=== PATIENT | female | born 1980 | race Hispanic/Latino ===

== ENCOUNTER 2017-10-07 18:20 | Emergency (ER) | payer SELFPAY ==
[~2017-10-07 18:20] MED LIST: CIPR-245 PO; LEVO1TAB79 PO; TAMS-1 PO; TYL3 PO
== END 2017-10-07 18:48 | disposition home or self-care (01) ==
LOC: EDH 18:20
DX: J02.9 Acute pharyngitis, unspecified (principal)
CPT/HCPCS: 99281

== ENCOUNTER 2022-11-24 18:36 | Emergency (ER) | payer OTHER ==
[~2022-11-24] VITALS: Ht 157.5 cm; Wt 108.9 kg
[~2022-11-24 18:36] MED LIST changes: -CIPR-245 PO; +CIPR500T10 PO
[2022-11-24 20:02] VITALS: BP 136/60
[2022-11-24] MEDS ORDERED: MECLIZINE HCL 25 MG TABLET PO ONE (20:30)
[2022-11-24] MEDS ORDERED: DEXAMETHASONE SOD PHOSPHATE 4 MG/ML 1ML VIAL IM ONE (20:30)
[2022-11-24] MEDS ORDERED: FLUT16H NASAL (20:46)
[2022-11-24] MEDS ORDERED: AMOX-426 PO (20:46)
[2022-11-24] MEDS ORDERED: PSEU120T62 PO (20:46)
[2022-11-24] MEDS ORDERED: MECL-160 PO (20:46)
[2022-11-24] MEDS ORDERED: ONDA-104 PO (20:46)
== END 2022-11-24 21:02 | disposition home or self-care (01) ==
LOC: EDH 18:36
DX: J32.9 Chronic sinusitis, unspecified (principal); J06.9 Acute upper respiratory infection, unspecified; R42 Dizziness and giddiness; Z79.899 Other long term (current) drug therapy
CPT/HCPCS: 99283; 96372; J1100

== ENCOUNTER 2023-04-05 14:43 | Emergency (ER) | payer BC, OTHER ==
[~2023-04-05] VITALS: Ht 160 cm; Wt 108.9 kg
[~2023-04-05 14:43] MED LIST changes: +AMOX-426 PO; +FLUT16H NASAL; +MECL-302 PO; +ONDA-104 PO; +PSEU120T62 PO
[2023-04-05 14:45] VITALS: BP 178/104; PULSE 70; RESP 18
[2023-04-05 16:04] LABS: BASOPHILS # (AUTO) 0.05 K/uL (0.00-0.20); BASOPHILS % (AUTO) 0.5 % (0.0-5.0); EOSINOPHILS # (AUTO) 0.21 K/uL (0.00-0.70); EOSINOPHILS % (AUTO) 1.9 % (0.0-8.0); HEMATOCRIT 40.4 % (36-48); IMMATURE GRANULOCYTE ABSOLUTE 0.09 K/uL (0-1); LYMPHOCYTES # (AUTO) 3.4 K/uL (1.0-4.8); LYMPHOCYTES % (AUTO) 31.2 % (21.0-51.0); MEAN CORPUSCULAR HEMOGLOBIN 29.1 pg (27.0-33.0); MEAN CORPUSCULAR HGB CONC 33.9 g/dL (32.0-36.0); MONOCYTES # (AUTO) 0.6 K/uL (0.1-1.0); MONOCYTES % (AUTO) 5.8 % (3.0-13.0); NEUTROPHILS # (AUTO) 6.5 K/uL (1.8-7.7); NEUTROPHILS % (AUTO) 59.8 % (40.0-77.0); PLATELET COUNT (AUTO) 418 K/uL (130-400); RED CELL DISTRIBUTION WIDTH 12.4 % (11.0-15.5); WHITE BLOOD COUNT (AUTO) 10.9 K/uL (4.8-10.8)
[2023-04-05 16:05] LABS: APPEARANCE,URINE CLEAR (CLEAR); BILIRUBIN,URINE NEGATIVE (NEGATIVE); COLOR,URINE LIGHT-YELLOW (YELLOW); GLUCOSE, URINE (UA) NEGATIVE (NEGATIVE); KETONES,URINE NEGATIVE (NEGATIVE); LEUKOCYTE ESTERASE ,URINE NEGATIVE Leu/uL (NEGATIVE); NITRATE,URINE NEGATIVE (NEGATIVE); OCCULT BLOOD,URINE MODERATE (NEGATIVE); PROTEIN,URINE NEGATIVE (NEGATIVE); UROBILINOGEN,URINE 0.2 mg/dL (0.2-1.0)
[2023-04-05 16:06] LABS: ADD UA MICROSCOPIC YES
[2023-04-05 16:14] LABS: CREATININE 0.7 mg/dL (0.5-1.5); POTASSIUM 3.4 mmol/L (3.5-5.1)
[2023-04-05 16:16] LABS: BACTERIA,URINE RARE /HPF (None Seen); SQUAMOUS EPITHELIAL CELL,UR RARE /HPF (0-2); WBC,URINE 0-1 /HPF (0-1)
[2023-04-05 16:18] LABS: ALBUMIN 3.7 g/dL (3.5-5.0); BILIRUBIN,TOTAL 0.5 mg/dL (0.2-1.0); TOTAL PROTEIN, SERUM 7.9 g/dL (6.0-8.3)
[2023-04-05 16:20] LABS: HCG,QUALITATIVE URINE NEGATIVE (NEGATIVE)
[2023-04-05] MEDS ORDERED: KETOROLAC 60 MG VIAL (30MG/ML) IM ONE (17:00)
[2023-04-05] MEDS ORDERED: PHEN-847 PO (17:56)
[2023-04-05] MEDS ORDERED: HYDROCODONE/ACETAMINOPHEN 5/325 MG TAB PO ONE (18:00)
== END 2023-04-05 18:17 | disposition home or self-care (01) ==
LOC: EDH 14:43
DX: N39.0 Urinary tract infection, site not specified (principal); Z79.3 Long term (current) use of hormonal contraceptives; Z88.1 Allergy status to other antibiotic agents; Z88.2 Allergy status to sulfonamides; Z91.51 Personal history of suicidal behavior
CPT/HCPCS: 99284; 74176; 80053; 85025; 81001; 81025; 36415; 96372; J1885

== ENCOUNTER 2024-02-22 12:42 | Emergency (ER) | payer BC ==
[~2024-02-22] VITALS: Ht 157.5 cm; Wt 90.7 kg
[~2024-02-22 12:42] MED LIST changes: +PHEN-847 PO
[2024-02-22 13:38] LABS: BASOPHILS # (AUTO) 0.02 K/uL (0.00-0.20); BASOPHILS % (AUTO) 0.2 % (0.0-5.0); EOSINOPHILS % (AUTO) 2.2 % (0.0-8.0); HEMATOCRIT 42.2 % (36-48); IMMATURE GRANULOCYTE ABSOLUTE 0.03 K/uL (0-1); LYMPHOCYTES # (AUTO) 2.9 K/uL (1.0-4.8); MEAN CORPUSCULAR HEMOGLOBIN 28.9 pg (27.0-33.0); MEAN CORPUSCULAR HGB CONC 33.4 g/dL (32.0-36.0); MEAN CORPUSCULAR VOLUME 86.5 fL (79-99); MONOCYTES # (AUTO) 0.4 K/uL (0.1-1.0); MONOCYTES % (AUTO) 4.6 % (3.0-13.0); NEUTROPHILS # (AUTO) 5.4 K/uL (1.8-7.7); NEUTROPHILS % (AUTO) 60.7 % (40.0-77.0); PLATELET COUNT (AUTO) 304 K/uL (130-400); RED BLOOD CELL COUNT(AUTO) 4.88 MIL/uL (4.00-5.50); RED CELL DISTRIBUTION WIDTH 12.7 % (11.0-15.5); WHITE BLOOD COUNT (AUTO) 8.9 K/uL (4.8-10.8)
[2024-02-22 13:49] LABS: APPEARANCE,URINE CLEAR (CLEAR); BILIRUBIN,URINE NEGATIVE (NEGATIVE); COLOR,URINE LIGHT-YELLOW (YELLOW); GLUCOSE, URINE (UA) NEGATIVE (NEGATIVE); KETONES,URINE NEGATIVE (NEGATIVE); LEUKOCYTE ESTERASE ,URINE NEGATIVE Leu/uL (NEGATIVE); NITRATE,URINE NEGATIVE (NEGATIVE); OCCULT BLOOD,URINE MODERATE (NEGATIVE); PROTEIN,URINE NEGATIVE (NEGATIVE); UROBILINOGEN,URINE 0.2 mg/dL (0.2-1.0)
[2024-02-22 13:53] LABS: HCG,QUALITATIVE URINE NEGATIVE (NEGATIVE)
[2024-02-22 13:55] LABS: CREATININE 0.6 mg/dL (0.5-1.0); POTASSIUM 3.8 mmol/L (3.5-5.1)
[2024-02-22 13:55] LABS: ADD UA MICROSCOPIC YES
[2024-02-22 13:57] LABS: BACTERIA,URINE RARE /HPF (None Seen); MUCUS,URINE RARE LPF (None Seen); SQUAMOUS EPITHELIAL CELL,UR RARE /HPF (0-2); WBC,URINE 0-1 /HPF (0-1)
[2024-02-22] MEDS: 0.9%NACL 1000ML 1,000 ML IV ONE (13:58)
[2024-02-22] MEDS: KETOROLAC 30MG VIAL (30MG/ML) IVP ONE (13:59)
[2024-02-22] MEDS ORDERED: NAPR-1192 PO (16:29)
[2024-02-22 16:49] VITALS: BP 115/68; PULSE 80; RESP 18; O2SAT 99
== END 2024-02-22 16:59 | disposition home or self-care (01) ==
LOC: EDH 12:42
DX: S39.011A Strain of muscle, fascia and tendon of abdomen, initial encounter (principal); N83.202 Unspecified ovarian cyst, left side; R30.0 Dysuria; Z88.2 Allergy status to sulfonamides; Z79.899 Other long term (current) drug therapy; Z79.2 Long term (current) use of antibiotics; X58.XXXA Exposure to other specified factors, initial encounter; Y93.89 Activity, other specified; Y92.89 Other specified places as the place of occurrence of the external cause; Y99.8 Other external cause status
CPT/HCPCS: 99284; 74176; 96374; 96361; 80048; 83690; 85025; 81001; 81025; 36415; J7030; J1885